=== PATIENT | male | born 1995 | race Caucasian/White ===

== ENCOUNTER 2018-03-23 01:59 | Emergency (ER) | payer BC ==
[~2018-03-23] VITALS: Ht 175.3 cm; Wt 65.9 kg
--- NOTE | 2018-03-23 02:10 | NUR ---
CALLED PT FOR TRIAGE, NO RESPONSE
--- NOTE | 2018-03-23 02:15 | NUR ---
PT CALLED FOR TRIAGE, NO RESPONSE
--- NOTE | 2018-03-23 02:26 | NUR ---
AMBULATED TO ER BED 2
--- NOTE | 2018-03-23 02:34 | NUR ---
CALLED [facility], SPOKE TO LARRY AT [phone]
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
--- NOTE | 2018-03-23 02:37 | NUR ---
LARRY AT [facility] STATED THEY WILL SEND OFFICER OUT SOON ONE IS AVAILABLE.
--- NOTE | 2018-03-23 02:53 | NUR ---
[facility] AT BEDSIDE. PT STATED THAT HE IS STILL THINKING ABOUT FILING A REPORT AT THIS TIME.
[2018-03-23] MEDS ORDERED: LIDOCAINE/EPI MPF 2%1:200000 10 ML VIAL INJ ONE (03:00)
[2018-03-23] MEDS ORDERED: ACETAMINOPHEN EXTRA STRENGTH 500 MG TAB PO ONE (03:00)
[2018-03-23] MEDS ORDERED: BACITRACIN OINT 500 UNITS/GM PKT TP ONE (03:00)
--- NOTE | 2018-03-23 03:02 | NUR ---
PT WOUND IRRIGATED WITH NORMAL SALINE
[2018-03-23] MEDS ORDERED: LIDOCAINE/EPI 2% 1:100000 20 ML VIAL INJ ONE ×2 (03:14→03:20)
--- NOTE | 2018-03-23 04:14 | NUR ---
[place] [facility] AT BEDSIDE
[2018-03-23 04:15] VITALS: BP 107/81
== END 2018-03-23 04:15 | disposition home or self-care (01) ==
LOC: MED 01:59
DX: S01.01XA Laceration without foreign body of scalp, initial encounter (principal); Z23 Encounter for immunization; Z88.8 Allergy status to other drugs, medicaments and biological substances; Y00.XXXA Assault by blunt object, initial encounter; Y93.89 Activity, other specified; Y92.89 Other specified places as the place of occurrence of the external cause; Y99.8 Other external cause status
CPT/HCPCS: 12002; 70450; 90471; 90715; 99284; J2001